=== PATIENT | male | born 1965 | race Caucasian/White ===

== ENCOUNTER 2021-03-31 09:27 | Inpatient (IN) | payer OTHER ==
[2021-03-31 12:52] LABS: BASO % 1.9 % (0-2.0); HEMATOCRIT 29.8 % (35.4-49); HEMOGLOBIN 9.8 GM/dL (11.7-16.9); LYMPH % 10.1 % (8-40); MCH 30.4 pg (25.7-33.7); MEAN CELL VOLUME 92.1 fl (80-96); MEAN PLT VOLUME 8.8 fl (7.5-11.1); MONO % 12.3 % (3.8-10.2); NEUT % 71.7 % (42.8-82.8); PLATELET COUNT 201 K/MM3 (134-434); RBC 3.24 M/mm3 (4.00-5.60); RDW 16.3 % (11.9-15.9); WHITE BLOOD COUNT 5.9 K/mm3 (4.0-10.0)
[2021-03-31 12:59] LABS: INR 1.17 (0.83-1.09); PROTHROMBIN TIME (PATIENT) 14.1 SEC (9.7-13.0)
[2021-03-31 13:01] LABS: ACTIVATED PTT 28.3 SECONDS (25.2-36.5)
[2021-03-31 13:15] LABS: ALBUMIN 3.3 g/dl (3.4-5.0); CALCIUM 8.3 mg/dL (8.5-10.1)
[2021-03-31 13:18] LABS: CREATININE 4.9 mg/dL (0.55-1.3)
[2021-03-31 13:20] LABS: BILIRUBIN,TOTAL 0.7 mg/dL (0.2-1)
[2021-03-31] MEDS ORDERED: VANCOMYCIN 1 GM in D5W (PRE-DOCKED) 1,000 MG/250 ML IVPB ONE (14:41)
[2021-03-31] MEDS ORDERED: PIPERACILLIN/TAZOB 2.25 GM 2.25 GM in DEXTROSE 5%-WATER - 50 ML IVPB ONE (14:41)
[2021-03-31] MEDS ORDERED: VANCOMYCIN 1 GRAM (PRE-DOCKED) 1,000 MG/250 ML BAG IVPB ONE (17:14)
[2021-03-31] MEDS ORDERED: PIPERACILLIN/TAZOB 2.25 GM 2.25 GM/50 ML BAG IVPB ONE (17:14)
[2021-03-31] MEDS ORDERED: HEPARIN NA (PORCINE) 5,000 UNITS/ML 1ML VIAL ONE (22:25)
[2021-03-31] MEDS: ROSUVASTATIN CA 5 MG TABLET (FP) PO SCH (22:45)
[2021-03-31] MEDS: HEPARIN NA (PORCINE) 5,000 UNITS/ML 1ML VIAL SQ SCH (22:45)
[2021-03-31] MEDS: hydrALAZINE HCL 10 MG TABLET PO SCH (22:45)
[2021-03-31] MEDS: INSULIN SLIDING SCALE (NOVOLOG) 1 VIAL SQ SCH (22:57)
[2021-04-01 00:30] VITALS: BMI 35.2
[2021-04-01] MEDS ORDERED: INSULIN (NOVOLOG) ASPART 100 UNITS/ML 10ML VIAL ONE ×3 (06:04→17:00)
[2021-04-01] MEDS: INSULIN SLIDING SCALE (NOVOLOG) 1 VIAL SQ SCH ×4 (06:25→22:00)
[2021-04-01] MEDS: hydrALAZINE HCL 10 MG TABLET PO SCH ×3 (06:25→21:08)
[2021-04-01] MEDS: INSULIN (LEVEMIR) 100 UNITS/ML UNITS SQ SCH (06:29)
[2021-04-01] MEDS ORDERED: INSULIN (LEVEMIR) 100 UNITS/ML UNITS SQ ONE (07:02)
[2021-04-01 08:47] LABS: INR 1.13 (0.83-1.09); PROTHROMBIN TIME (PATIENT) 13.8 SEC (9.7-13.0)
[2021-04-01] MEDS ORDERED: PT OWN MED DRAWER 7, Y5N ONE (09:16)
[2021-04-01] MEDS: ISOSORBIDE MONONITRATE 60 MG TAB.SR.24H (FP) PO SCH (09:23)
[2021-04-01] MEDS: HEPARIN NA (PORCINE) 5,000 UNITS/ML 1ML VIAL SQ SCH ×2 (09:23→21:09)
[2021-04-01] MEDS ORDERED: ASPIRIN 81 MG CHEWABLE TABLETS PO SCH (10:00)
[2021-04-01] MEDS ORDERED: cefTRIAXone SODIUM 1 GM VIAL ONE (13:52)
[2021-04-01] MEDS ORDERED: DEXTROSE 5%-WATER - 50 ML IVPB ONE (13:52)
[2021-04-01] MEDS: CEFTRIAXONE 1 GM in DEXTROSE 5%-WATER - 50 ML IVPB SCH (14:06)
[2021-04-01] MEDS ORDERED: SODIUM CHLORIDE 250 ML IV PRN (17:26)
[2021-04-01 19:38] LABS: N-TERMINAL BNP 84172.3 pg/ml (5-125)
[2021-04-01] MEDS: ROSUVASTATIN CA 5 MG TABLET (FP) PO SCH (21:09)
[2021-04-01] MEDS: ZOLPIDEM TARTRATE 5 MG TABLET PO PRN (21:57)
[2021-04-02] MEDS: hydrALAZINE HCL 10 MG TABLET PO SCH ×3 (05:59→22:37)
[2021-04-02] MEDS: INSULIN (LEVEMIR) 100 UNITS/ML UNITS SQ SCH (06:01)
[2021-04-02] MEDS: INSULIN SLIDING SCALE (NOVOLOG) 1 VIAL SQ SCH ×4 (06:02→22:37)
[2021-04-02] MEDS ORDERED: cefTRIAXone SODIUM 1 GM VIAL ONE (09:05)
[2021-04-02] MEDS ORDERED: DEXTROSE 5%-WATER - 50 ML IVPB ONE (09:05)
[2021-04-02] MEDS ORDERED: PT OWN MED DRAWER 7, Y5N ONE ×2 (09:05→10:55)
[2021-04-02] MEDS: HEPARIN NA (PORCINE) 5,000 UNITS/ML 1ML VIAL SQ SCH ×2 (09:39→22:37)
[2021-04-02] MEDS: ISOSORBIDE MONONITRATE 60 MG TAB.SR.24H (FP) PO SCH (09:40)
[2021-04-02] MEDS: CEFTRIAXONE 1 GM in DEXTROSE 5%-WATER - 50 ML IVPB SCH (10:00)
[2021-04-02] MEDS ORDERED: EPOETIN ALFA-EPBX 4,000 UNIT/ML VIAL IVPUSH ONE (12:30)
[2021-04-02] MEDS: ROSUVASTATIN CA 5 MG TABLET (FP) PO SCH (22:36)
[2021-04-02] MEDS: ZOLPIDEM TARTRATE 5 MG TABLET PO PRN (23:20)
[2021-04-03 04:06] LABS: HEP B CORE AB, TOT Negative (Negative)
[2021-04-03] MEDS: hydrALAZINE HCL 10 MG TABLET PO SCH ×3 (06:39→21:12)
[2021-04-03] MEDS: INSULIN (LEVEMIR) 100 UNITS/ML UNITS SQ SCH (06:46)
[2021-04-03] MEDS: INSULIN SLIDING SCALE (NOVOLOG) 1 VIAL SQ SCH ×4 (06:46→21:26)
[2021-04-03 08:21] LABS: EOS % 4.6 % (0-4.5); HEMATOCRIT 29.9 % (35.4-49); LYMPH % 14.8 % (8-40); MCH 30.7 pg (25.7-33.7); MCHC 33.3 g/dl (32.0-35.9); MEAN CELL VOLUME 92.2 fl (80-96); MEAN PLT VOLUME 8.7 fl (7.5-11.1); NEUT % 65.6 % (42.8-82.8); PLATELET COUNT 184 K/MM3 (134-434); RBC 3.25 M/mm3 (4.00-5.60); RDW 16.6 % (11.9-15.9); WHITE BLOOD COUNT 5.6 K/mm3 (4.0-10.0)
[2021-04-03 08:36] LABS: INR 1.2 (0.83-1.09); PROTHROMBIN TIME (PATIENT) 14.7 SEC (9.7-13.0)
[2021-04-03 08:44] LABS: CALCIUM 7.6 mg/dL (8.5-10.1)
[2021-04-03 08:45] LABS: ALBUMIN 3.2 g/dl (3.4-5.0); BLOOD UREA NITROGEN 29.8 mg/dL (7-18)
[2021-04-03 08:46] LABS: BILIRUBIN,TOTAL 0.7 mg/dL (0.2-1); TOT PROT 7.7 g/dl (6.4-8.2)
[2021-04-03] MEDS: HEPARIN NA (PORCINE) 5,000 UNITS/ML 1ML VIAL SQ SCH ×2 (10:54→21:13)
[2021-04-03] MEDS: ISOSORBIDE MONONITRATE 60 MG TAB.SR.24H (FP) PO SCH (10:54)
[2021-04-03] MEDS: CEFTRIAXONE 1 GM in DEXTROSE 5%-WATER - 50 ML IVPB SCH (10:55)
[2021-04-03] MEDS ORDERED: INSULIN (NOVOLOG) ASPART 100 UNITS/ML 10ML VIAL ONE (10:56)
[2021-04-03] MEDS: ZOLPIDEM TARTRATE 5 MG TABLET PO PRN (21:11)
[2021-04-03] MEDS: ROSUVASTATIN CA 5 MG TABLET (FP) PO SCH (21:12)
[2021-04-03] MEDS ORDERED: SODIUM CHLORIDE 250 ML IV PRN (21:34)
[2021-04-04] MEDS: INSULIN SLIDING SCALE (NOVOLOG) 1 VIAL SQ SCH (06:46)
[2021-04-04] MEDS: INSULIN (LEVEMIR) 100 UNITS/ML UNITS SQ SCH (06:47)
[2021-04-04] MEDS: hydrALAZINE HCL 10 MG TABLET PO SCH ×4 (06:47→22:36)
[2021-04-04] MEDS ORDERED: DEXAMETHASONE SOD PHOSPHATE 4 MG/1 ML VIAL ONE (07:10)
[2021-04-04] MEDS ORDERED: SODIUM CHLORIDE 0.9% P/F 10 ML VIAL IJ ONE (07:17)
[2021-04-04] MEDS ORDERED: PROPOFOL 20 ML ONE (07:39)
[2021-04-04] MEDS ORDERED: KETOROLAC TROMETHAMINE 30 MG/1 ML VIAL ONE (07:39)
[2021-04-04] MEDS ORDERED: MIDAZOLAM HCL 2 MG/2 ML SINGLE DOSE VIAL ONE (07:39)
[2021-04-04] MEDS ORDERED: BACITRACIN 50,000 UNITS VIAL TP ONE (07:46)
[2021-04-04] MEDS ORDERED: LIDOCAINE HCL 1%, 10 MG/ML (20ML VIAL) INF ONE (07:46)
[2021-04-04] MEDS ORDERED: VANCOMYCIN 1,000 MG VIAL (RESTRICTED TO ID ONLY) IVPB ONE (07:49)
[2021-04-04] MEDS ORDERED: VANCOMYCIN 1,000 MG VIAL (RESTRICTED TO ID ONLY) ONE (08:01)
[2021-04-04] MEDS ORDERED: EPOETIN ALFA-EPBX 3,000 UNIT/ML VIAL SQ ONE ×2 (10:00→10:30)
[2021-04-04] MEDS: ISOSORBIDE MONONITRATE 60 MG TAB.SR.24H (FP) PO SCH (10:00)
[2021-04-04] MEDS: CEFTRIAXONE 1 GM in DEXTROSE 5%-WATER - 50 ML IVPB SCH (10:00)
[2021-04-04] MEDS: HEPARIN NA (PORCINE) 5,000 UNITS/ML 1ML VIAL SQ SCH ×2 (10:00→22:38)
[2021-04-04 10:09] LABS: BASO % 1.8 % (0-2.0); EOS % 3.8 % (0-4.5); HEMATOCRIT 29.8 % (35.4-49); HEMOGLOBIN 9.9 GM/dL (11.7-16.9); LYMPH % 14.7 % (8-40); MCH 30.6 pg (25.7-33.7); MCHC 33.4 g/dl (32.0-35.9); MEAN CELL VOLUME 91.7 fl (80-96); MEAN PLT VOLUME 8.6 fl (7.5-11.1); MONO % 12.4 % (3.8-10.2); NEUT % 67.3 % (42.8-82.8); PLATELET COUNT 184 K/MM3 (134-434); RBC 3.25 M/mm3 (4.00-5.60); RDW 16.4 % (11.9-15.9); WHITE BLOOD COUNT 5.6 K/mm3 (4.0-10.0)
[2021-04-04] MEDS ORDERED: SODIUM CHLORIDE 250 ML IV PRN (10:20)
[2021-04-04 10:29] LABS: CALCIUM 7.5 mg/dL (8.5-10.1)
[2021-04-04 10:30] LABS: ALBUMIN 3.3 g/dl (3.4-5.0); BLOOD UREA NITROGEN 50.3 mg/dL (7-18)
[2021-04-04 10:33] LABS: CREATININE 6.5 mg/dL (0.55-1.3)
[2021-04-04 10:34] LABS: BILIRUBIN,TOTAL 0.9 mg/dL (0.2-1)
[2021-04-04 10:35] LABS: TOT PROT 7.4 g/dl (6.4-8.2)
[2021-04-04] MEDS: ZOLPIDEM TARTRATE 5 MG TABLET PO PRN (22:37)
[2021-04-04] MEDS: ROSUVASTATIN CA 5 MG TABLET (FP) PO SCH (22:37)
[2021-04-05] MEDS: hydrALAZINE HCL 10 MG TABLET PO SCH ×3 (06:18→21:32)
[2021-04-05] MEDS: INSULIN (LEVEMIR) 100 UNITS/ML UNITS SQ SCH (06:22)
[2021-04-05 08:49] LABS: BASO % 1.2 % (0-2.0); EOS % 3.2 % (0-4.5); HEMATOCRIT 28.9 % (35.4-49); HEMOGLOBIN 9.8 GM/dL (11.7-16.9); LYMPH % 10.7 % (8-40); MCH 31.6 pg (25.7-33.7); MEAN CELL VOLUME 93.1 fl (80-96); MEAN PLT VOLUME 8.4 fl (7.5-11.1); MONO % 12.6 % (3.8-10.2); NEUT % 72.3 % (42.8-82.8); PLATELET COUNT 167 K/MM3 (134-434); RBC 3.11 M/mm3 (4.00-5.60); RDW 16.2 % (11.9-15.9); WHITE BLOOD COUNT 4.5 K/mm3 (4.0-10.0)
[2021-04-05 09:01] LABS: CALCIUM 7.7 mg/dL (8.5-10.1)
[2021-04-05] MEDS ORDERED: DEXTROSE 5%-WATER - 50 ML IVPB ONE (09:01)
[2021-04-05] MEDS ORDERED: cefTRIAXone SODIUM 1 GM VIAL ONE (09:01)
[2021-04-05 09:02] LABS: ALBUMIN 3.3 g/dl (3.4-5.0); BLOOD UREA NITROGEN 27.3 mg/dL (7-18)
[2021-04-05 09:05] LABS: CREATININE 4.8 mg/dL (0.55-1.3)
[2021-04-05 09:07] LABS: TOT PROT 7.5 g/dl (6.4-8.2)
[2021-04-05] MEDS: HEPARIN NA (PORCINE) 5,000 UNITS/ML 1ML VIAL SQ SCH ×2 (10:12→21:32)
[2021-04-05] MEDS: CEFTRIAXONE 1 GM in DEXTROSE 5%-WATER - 50 ML IVPB SCH (10:13)
[2021-04-05] MEDS: ISOSORBIDE MONONITRATE 60 MG TAB.SR.24H (FP) PO SCH (10:13)
[2021-04-05] MEDS ORDERED: INSULIN (NOVOLOG) ASPART 100 UNITS/ML 10ML VIAL ONE ×2 (11:19→21:29)
[2021-04-05] MEDS: CALCIUM ACETATE 667 MG CAPSULE (FP) PO SCH ×2 (11:44→16:58)
[2021-04-05] MEDS: INSULIN SLIDING SCALE (NOVOLOG) 1 VIAL SQ SCH ×2 (16:59→21:39)
[2021-04-05] MEDS: ROSUVASTATIN CA 5 MG TABLET (FP) PO SCH (21:32)
[2021-04-05] MEDS: ZOLPIDEM TARTRATE 5 MG TABLET PO PRN (21:33)
[2021-04-06] MEDS: hydrALAZINE HCL 10 MG TABLET PO SCH ×3 (05:44→22:08)
[2021-04-06] MEDS: INSULIN SLIDING SCALE (NOVOLOG) 1 VIAL SQ SCH ×4 (05:59→22:14)
[2021-04-06] MEDS: INSULIN (LEVEMIR) 100 UNITS/ML UNITS SQ SCH (06:24)
[2021-04-06] MEDS: CALCIUM ACETATE 667 MG CAPSULE (FP) PO SCH ×3 (08:18→16:43)
[2021-04-06 08:29] LABS: BASO % 2.3 % (0-2.0); EOS % 4.9 % (0-4.5); HEMATOCRIT 28.5 % (35.4-49); HEMOGLOBIN 9.6 GM/dL (11.7-16.9); LYMPH % 13.7 % (8-40); MCH 31.5 pg (25.7-33.7); MCHC 33.8 g/dl (32.0-35.9); MEAN CELL VOLUME 93.1 fl (80-96); MEAN PLT VOLUME 8.5 fl (7.5-11.1); MONO % 13.5 % (3.8-10.2); NEUT % 65.6 % (42.8-82.8); PLATELET COUNT 176 K/MM3 (134-434); RBC 3.06 M/mm3 (4.00-5.60); RDW 16.5 % (11.9-15.9); WHITE BLOOD COUNT 5.3 K/mm3 (4.0-10.0)
[2021-04-06 08:54] LABS: CALCIUM 7.6 mg/dL (8.5-10.1)
[2021-04-06 08:55] LABS: ALBUMIN 3.1 g/dl (3.4-5.0); BLOOD UREA NITROGEN 41.9 mg/dL (7-18)
[2021-04-06 08:58] LABS: CREATININE 6.8 mg/dL (0.55-1.3)
[2021-04-06 08:59] LABS: TOT PROT 7.1 g/dl (6.4-8.2)
[2021-04-06] MEDS: CEFTRIAXONE 1 GM in DEXTROSE 5%-WATER - 50 ML IVPB SCH (09:17)
[2021-04-06] MEDS: HEPARIN NA (PORCINE) 5,000 UNITS/ML 1ML VIAL SQ SCH ×2 (09:17→22:09)
[2021-04-06] MEDS: ISOSORBIDE MONONITRATE 60 MG TAB.SR.24H (FP) PO SCH (09:17)
[2021-04-06] MEDS ORDERED: INSULIN (NOVOLOG) ASPART 100 UNITS/ML 10ML VIAL ONE ×2 (11:07→21:35)
[2021-04-06] MEDS: ROSUVASTATIN CA 5 MG TABLET (FP) PO SCH (22:08)
[2021-04-06] MEDS: ZOLPIDEM TARTRATE 5 MG TABLET PO PRN (22:10)
[2021-04-07] MEDS: hydrALAZINE HCL 10 MG TABLET PO SCH ×2 (06:16→14:38)
[2021-04-07] MEDS: INSULIN (LEVEMIR) 100 UNITS/ML UNITS SQ SCH (06:22)
[2021-04-07] MEDS: INSULIN SLIDING SCALE (NOVOLOG) 1 VIAL SQ SCH ×3 (06:22→17:13)
[2021-04-07] MEDS: CALCIUM ACETATE 667 MG CAPSULE (FP) PO SCH ×4 (08:19→17:13)
[2021-04-07] MEDS ORDERED: SODIUM CHLORIDE 250 ML IV PRN (10:41)
[2021-04-07] MEDS ORDERED: EPOETIN ALFA-EPBX 4,000 UNIT/ML VIAL IVPUSH ONE (10:43)
[2021-04-07] MEDS: ISOSORBIDE MONONITRATE 60 MG TAB.SR.24H (FP) PO SCH (11:41)
[2021-04-07] MEDS: CEFTRIAXONE 1 GM in DEXTROSE 5%-WATER - 50 ML IVPB SCH (11:41)
[2021-04-07] MEDS: HEPARIN NA (PORCINE) 5,000 UNITS/ML 1ML VIAL SQ SCH (11:41)
[2021-04-07 14:54] VITALS: BP 129/66; PULSE 77; TEMP 97.7
[2021-04-07 17:23] LABS: BASO % 1.3 % (0-2.0); EOS % 4.7 % (0-4.5); HEMATOCRIT 31.2 % (35.4-49); HEMOGLOBIN 10.3 GM/dL (11.7-16.9); MCH 30.7 pg (25.7-33.7); MCHC 33.1 g/dl (32.0-35.9); MEAN CELL VOLUME 92.7 fl (80-96); MEAN PLT VOLUME 8.6 fl (7.5-11.1); MONO % 13.6 % (3.8-10.2); NEUT % 68.4 % (42.8-82.8); PLATELET COUNT 177 K/MM3 (134-434); RBC 3.37 M/mm3 (4.00-5.60); RDW 16.7 % (11.9-15.9); WHITE BLOOD COUNT 4.1 K/mm3 (4.0-10.0)
== END 2021-04-07 18:34 | disposition home health service (06) | DRG 255 ==
LOC: JER 09:27 → JERBED 09:59 → J6S 23:14
PROVIDERS: ADMIT Internal Medicine; ATTEND Internal Medicine
PROC: 3E0102A Introduction of Anti-Infective Envelope into Subcutaneous Tissue, Open Approach (ICD-10-PCS; 2021-04-04)
PROC: 0Y6Q0Z0 Detachment at Left 1st Toe, Complete, Open Approach (ICD-10-PCS; principal; 2021-04-04 07:30)
PROC: 0JBR0ZZ Excision of Left Foot Subcutaneous Tissue and Fascia, Open Approach (ICD-10-PCS; 2021-04-04 07:30)
PROC: 5A1D70Z Performance of Urinary Filtration, Intermittent, Less than 6 Hours Per Day (ICD-10-PCS; 2021-04-07)
DX: E11.52 Type 2 diabetes mellitus with diabetic peripheral angiopathy with gangrene (principal); N18.6 End stage renal disease; M86.172 Other acute osteomyelitis, left ankle and foot; L97.919 Non-pressure chronic ulcer of unspecified part of right lower leg with unspecified severity; L97.929 Non-pressure chronic ulcer of unspecified part of left lower leg with unspecified severity; I50.22 Chronic systolic (congestive) heart failure; I13.2 Hypertensive heart and chronic kidney disease with heart failure and with stage 5 chronic kidney disease, or end stage renal disease; I96 Gangrene, not elsewhere classified; E11.621 Type 2 diabetes mellitus with foot ulcer; E11.69 Type 2 diabetes mellitus with other specified complication; I48.91 Unspecified atrial fibrillation; E78.5 Hyperlipidemia, unspecified; E11.22 Type 2 diabetes mellitus with diabetic chronic kidney disease; I25.10 Atherosclerotic heart disease of native coronary artery without angina pectoris; E66.9 Obesity, unspecified; Z68.35 Body mass index [BMI] 35.0-35.9, adult; D64.9 Anemia, unspecified; E11.40 Type 2 diabetes mellitus with diabetic neuropathy, unspecified; E11.65 Type 2 diabetes mellitus with hyperglycemia; Z99.2 Dependence on renal dialysis; Z95.810 Presence of automatic (implantable) cardiac defibrillator
CPT/HCPCS: 36415; 71046-TC-FY; 73630-TC-LT; 73660-TC-LT-FY; 80053; 80061; 82962; 83036; 83721; 83880; 84100; 84443; 85025; 85610; 85730; 86704; 86706; 86850; 86900; 86901; 87070; 87186; 87205; 87340; 93005; 93010; 99285-25; C9803; J1644; Q5106; U0003; U0005